=== PATIENT | female | born 1990 | race Caucasian/White ===

== ENCOUNTER 2024-08-14 09:31 | Emergency (ER) | payer OTHER, SELFPAY ==
--- NOTE | 2024-08-14 09:42 | ED_ITS ---
HPI - URI/Sore Throat General Chief Complaint: Upper Respiratory Infection Stated Complaint: Fever,Nausea,Headache Time Seen by Provider: 08/14/24 09:43 Source: patient, RN notes reviewed and old records reviewed Mode of arrival: ambulatory Limitations: no limitations History of Present Illness HPI Narrative: Patient presents with complaints of headache, fever, body aches, cough. She reports symptoms began 3 days ago. She reports at this time headache is her worst symptom. She states that she has been taking Tylenol, and this relieves all symptoms with the exception of her headache. She reports that headache become so bad that at times she has become nauseous and vomited. She denies any abdominal pain. She reports headache is worse with any sort of movement. Better with rest. She denies any injury or trauma. She voices no other concerns or complaints today. Related Data Allergies Allergy/AdvReac Type Severity Reaction Status Date / Time No Known Allergies Allergy Verified 08/14/24 09:43 Review of Systems Review of Systems: All systems reviewed & are unremarkable except as noted in HPI and below Constitutional: Constitutional: Reports as per HPI, Reports no additional constitutional complaints, Reports body ache(s), Reports chills, Reports fever(s), Reports headache(s) and Reports lethargy ENT: Reports system reviewed and no additional complaints, except as doc umented, Reports as per HPI, Reports nasal congestion and Reports nasal discharge Cardiovascular: Cardiovascular: Reports as per HPI and Reports no additional cardiovascular complaints Respiratory: Respiratory: Reports as per HPI, Reports no additional respiratory complaints and Reports cough Gastrointestinal: Gastrointestinal: Reports no additional gastrointestinal complaints PMFSH Comments At the time of my signature, I reviewed and agree with the nursing past medical, surgical, social, and family history. There is no relevant family history pertinent to the patient complaint. Exam Const: General: cooperative, no acute distress, alert and awake Orientation/consciousness: oriented to person, oriented to place and oriented to time HENMT: Head: normal to inspection, normocephalic and atraumatic Ears: TM's normal bilaterally Mouth: Yes moist mucous membranes Resp: Effort & Inspection: normal respiratory effort and able to speak in complete sentences Auscultation: clear to auscultation bilaterally, no crackles, no rales, no rhonchi and no wheezes Cardio: Palpation: normal PMI Rate: regular rate Rhythm: regular rhythm Heart sounds: S1 normal heart sound present and S2 normal heart sound present GI: GI Palp: Yes Soft to palpation, No Tenderness to palpation present (GI), No Guarding due to palpation present (GI) and No Rigid due to palpation Auscultation: abnormal bowel sounds Neuro: General: oriented to person, oriented to place and oriented to time Cranial nerves: Yes CN's II-XII intact bilaterally Psych: Appearance: grossly normal Thought process: Normal thought process present Insight: Good insight present (Psych) Judgement: Good judgement present (Psych) Course Course Level of Care: Express Care Visit Vital Signs Vital signs: Reviewed MDM - URI/Sore Throat MDM Narrative Medical decision making narrative: negative COVID, negative flu, negative strep. Culture pending. Patient is , was unable to give Toradol while in clinic today due to this fact. Discussed importance of staying well hydrated in light of breast feeding and headache. Patient agrees that if she was less nauseous she would be able to maintain better hydration status. Discharge home with Zofran. Emergency department precautions discussed. Discharge instructions reviewed with patient, as well as provided in writing per nursing staff. The instructions also include specific and strict return/GO TO THE ER as well as f/u information. All questions have been answered, and the patient deny any further questions with discharge and discharge plan. Some parts of this dictation were generated by voice recognition software and may contain typographical and/or grammatical inaccuracies. Differential Diagnosis Differential diagnosis: Likely upper respiratory infection, otitis media, sinusitis, viral infection, influenza and pharyngitis Medical Records Attestation: I reviewed the patient's medical records. Lab Data Attestation: I reviewed the patient's lab results. Discharge Plan Discharge Clinical Impression: Viral infection Patient Disposition: Home, Self-Care Condition: Stable Instructions: Antibiotic Form, Viral Syndrome (ED) Additional Instructions: stay well hydrated, use over the counter medication to help with headache and body aches. Take Zofran as prescribed. Follow with primary care provider. Emergency department for new or worse symptoms Patient Language: Colombian Prescriptions: New ondansetron 4 mg tablet,disintegrating 4 mg PO Q6H PRN (Reason: nausea and vomiting) Qty: 20 0RF Follow-up/Referrals: UNKNOWN,DOCTOR [Primary Care Provider] - Time of Disposition: 10:15
[2024-08-14 09:44] VITALS: BP 124/72; PULSE 88; RESP 18; TEMP 36.8; O2SAT 98
[2024-08-14 10:07] LABS: EDCOVIDSCREEN Negative (Negative); EDINFLUASCREEN Negative (Negative); EDINFLUBSCREEN Negative (Negative); EDSTREPNEGPOS1 Negative (Negative)
--- OUTSIDE RECORDS SUMMARY | 2024-08-14 10:15 | XMS_ITS | Clinical Summary ---
Author Organization [facility] Address [address] [place] [id number] Care Team Providers Care Band Cutting Machine Operator Name Role Phone Kathryn Melara NP Primary Care Provider Millicent Desai MD Unavailable [phone] Allergies No known active allergies Medications * This document contains information received from the source organization and may not represent a complete record from that organization. [id number] 29-1-400 mg combo pack Take by mouth Active Hospital, Clinic, or Other Facility Administered Medication Ordered Dose Route Frequency Start Date End Date Status copper (PARAGARD) 380 square mm IUD 1 eachIndications:Pre gnancy Contraception 1 each intrauterine Continuous (implanted device) 02/24/2024 4 Active Active Problems Problem Noted Date Diagnosed Date Encounter for routine follow-up 03/15 Assessment & Plan (05/13/2022 9:34 AM CDT): Discussed Usual Preventative Care for age today. We discussed ways to maintain a healthy lifestyle through regular fitness, diet, rest, resilience, obesity prevention/reduction and safety. Continue current medications and continue current healthy lifestyle patterns and return for routine annual checkups. Immunization status was reviewed and addressed based on CDC guidelines. Age appropriate counseling and testing was discussed using the Agency for Health Care Research and Quality (AHRQ.gov) recommendations as a basis. We will check lipids and additional screening labs as indicated. I recommended moderate aerobic exercise regularly at least 30 minutes most days of the week. A low-fat, low carbohydrate diet is recommended. Get calcium 1-1.2 gram daily with Vit D via diet or supplements Try to get 6-8 hours of sleep daily. Reduce exposure to stress. Accident Prevention was encouraged via Seatbelt/Helmet use. Patient was encouraged to contact this office should any new problems develop in the interim until next exam. Assessment & Plan (03/15/2020 9:46 AM CDT): Discussed Usual Preventative Care for age today. We discussed ways to maintain a healthy lifestyle through regular fitness, diet, rest, resilience, obesity prevention/reduction and safety. Continue current medications and continue current healthy lifestyle patterns and return for routine annual checkups. Immunization status was reviewed and addressed based on CDC guidelines. Age appropriate counseling and testing was discussed using the Agency for Health Care Research and Quality (AHRQ.gov) recommendations as a basis. We will check lipids and additional screening labs as indicated. I recommended moderate aerobic exercise regularly at least 30 minutes most days of the week. A low-fat, low carbohydrate diet is recommended. Get calcium 1-1.2 gram daily with Vit D via diet or supplements Try to get 6-8 hours of sleep daily. Reduce exposure to stress. Accident Prevention was encouraged via Seatbelt/Helmet use. Patient was encouraged to contact this office should any new problems develop in the interim until next exam. 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 No signs/symptoms of infection. # Heme: Hgb 11.6> EBL 250 mL. Hemodynamically stable. # CV/Pulm: Vital signs stable, within normal limits. # GI/: Tolerating PO. Voiding spontaneously. # Pain: Controlled with above regimen. # MOC: IUD at clinic visit # MOF: . Urine drug screen not indicated. Patient informed of results: N/A. # Post DVT prophylaxis: The patient has the following MAJOR risk factors none and the following MINOR risk factors none. SCDs ordered for VTE prophylaxis. # Disposition: Follow up task not sent. Desires discharge home today. Supervision of other normal , antepartum 05/28/2023 02/24/2024 Overview (01/13/2024): RN at [facility] -Vitamin D and B12 deficiency -IOL sched 01/18/2024 @ 0830, pt aware [x] Initial BMI: 22.92 [x] Labs: Labs: Lab Results Component Value Date ABORH A Positive 06/09/2023 IDCOOMB Negative 06/09/2023 [id number] Nonreactive 06/09/2023 LABRPR Nonreactive 06/09/2023 RUBELIGG Reactive 06/09/2023 HEPBSAG Nonreactive 06/09/2023 GBS neg 07/17/2021 [x] Genetic Screening: declines [x] Baby ASA: n/a [x] 1hr GCT at 24-28wks: 54 [x] Tdap (27-36wks): 10/21/2023 AH [x] Flu Shot: rcvd [] COVID vaccine: declines [] Rhogam (if Rh neg): n/a A+ [x] GBS at 36 wks:Negative [x] [x] control method: desires Paragard IUD @ her PP visit [x] 39 weeks discussion of IOL vs. Expectant management:desires spontaneous labor [x] Mode of delivery: anticipate [] For C/S bottle of CHG 4% and hand out provided @ 36wks Girl, , [facility] Teaching: [x] 1st visit [x] 28-30 week [x] 36 week care following vaginal delivery 08/15/2021 04/13/2023 Overview (08/16/2021): # ID: Afebrile. No signs/symptoms of infection. #COVID-19: Negative # Heme: EBL 150 mL. No symptoms acute blood loss anemia. # CV/Pulm: Vital signs stable, within normal limits. # GI/: Tolerating PO. Voiding spontaneously. # Pain: Controlled with above regimen. # Post DVT prophylaxis: The patient has the following MAJOR risk factors none and the following MINOR risk factors none. SCDs ordered for VTE prophylaxis. # MOC: Desires IUD at visit, declines bridge # MOF: # COVID Vaccination Status: Not previously received: I decline to share my reason for not getting the vaccine # Disposition: Follow up to be scheduled with primary OB. Patient desiring discharge today. Discussed that discharge depends on 's status and discussion with pediatrics team. Discussed that patient is meeting all milestones from a standpoint. Normal labor 08/14/2021 04/13/2023 Overview (08/14/2021): 1. Labor: Admit to L&D. Consents signed and placed in chart. Send CBC/T&S. Induction of labor with Pitocin. 2. FWB: Continuous monitoring. tracing category II, reassured by moderate variability 3. ID: HIV negative. GBS negative. Membrane Status: intact. 4. Indications for UDS: none. Verbal consent obtained for UDS: Not indicated 5. MOF: Plans to breastfeed. 6. MOC: Plans to use Kylena at 6 weeks for contraception. 7. Pain management: Desires epidural . 8. Post DVT prophylaxis: The patient has the following MAJOR risk factors none and the following MINOR risk factors none. SCDs will be ordered for VTE prophylaxis . 9. COVID Vaccine Status: did not recieve 10. COVID Test Status: Test sent on admission Supervision of other normal , antepartum 01/01/2021 04/13/2023 Overview (07/22/2021): -COVID + 09/2020 RN at [facility] [x] Labs: Labs: Lab Results Component Value Date ABORH A Positive 01/07/2021 IDCOOMB Negative 01/07/2021 [id number] Nonreactive 01/07/2021 LABRPR Nonreactive 01/07/2021 RUBELIGG Reactive 01/07/2021 HEPBSAG Nonreactive 01/07/2021 [x] Genetic Screening: Declined [x] Baby ASA: n/a [x] 1hr GCT at 24-28wks: 94 [x] Tdap (27-36wks): 11/2 SM [x] Flu Shot: 11/2SM [] Rhogam (if Rh neg): n/a A+ [x] GBS at 36 wks:Negative [x] [x] control method:likely 6wk Yomileyue [x] 39 weeks discussion of IOL vs. Expectant management: expectant mgmt [x] Mode of delivery: [] For C/S bottle of CHG 4% and hand out provided @ 36wks Girl, , Dr. Schwartz, Nguyễnena @ 6wks Teaching: [x] 1st visit [x] 28-30 week [x] 36 week Immunizations Name Administration Dates Next Due Influenza, Quadrivalent, Dang l Culture-based MDCK, Preservative Free, Antibiotic Free, Intramuscular 05/20/2021 Influenza, Trivalent, Cell C ulture-based MDCK, Preservative Free, Antibiotic Free, Intramuscular 04/25/2024 Influenza, Unspecified 05/07/2023,04/29/2022 Tdap 10/21/2023,05/20/2021,03/15/2020 Medical History Medical History Date Comments Eye exam, routine Needs to sewt up- Dr. Michelle Dental examination Q [address] roland [place] IUD contraception 2017 Dr. Diana wright in [place] H/O laryngeal spasm 2019 presented w waking at night and could not breath for 10-15 seconds -took 2.5 weeks of omeprazole and it helped Family History Medical History Relation Name Comments Lung cancer Father Ovarian cancer Mother's Sister Relation Name Status Comments Father Alive Mother Alive Mother's Sister Social History Tobacco Use Types Packs/Day Years Used Date Smoking Tobacco: Never Smokeless Tobacco: Never Tobacco Cessation:Counseling Given: Not Answered Alcohol Use Standard Drinks/Week Comments Yes 0 (1 standard drink = 0.6 oz pur e alcohol) Socially, 1-2 [facility] Utilities Answer Date Recorded In the past 12 months has th e [employer], gas, oil, or water [employer] threatened to shut off services in your home? No 01/16/2024 Humiliation, Afraid, Rape, and Kick questionnair e Answer Date Recorded Within the last year, have y ou been afraid of your partner or ex-partner? No 05/13/2022 Within the last year, have y ou been humiliated or emotionally abused in other ways by your partner or ex-partner? No Within the last year, have y ou been kicked, hit, slapped, or otherwise physically hurt by your partner or ex-partner? No 05/13/2022 Within the last year, have y ou been raped or forced to have any kind of sexual activity by your partner or ex-partner? No 05/13/2022 Social Connection and Isolat ion Panel [NHANES] Answer Date Recorded In a typical week, how many times do you talk on the phone with family, friends, or neighbors? More than three times a week 01/16/2024 How often do you get togethe r with friends or relatives? More than three times a week 01/16/2024 How often do you attend chur or pentecostal services? More than 4 times per year 01/16/2024 Do you belong to any clubs o r organizations such as hindu groups, unions, fraternal or athletic groups, or school groups? No 01/16/2024 How often do you attend meet ings of the clubs or organizations you belong to? Never 01/16/2024 Are you , , di vorced, , never , or living with a partner? 01/16/2024 AUDIT-C Answer Date Recorded Q1: How often do you have a drink containing alc ohol? Monthly or less 04/13/2023 Q2: How many drinks containi ng alcohol do you have on a typical day when you are drinking? 1 or 2 04/13/2023 Q3: How often do you have si x or more drinks on one occasion? Never 04/13/2023 Overall Financial Resource Strain (CARDIA) Answe r Date Recorded How hard is it for you to pa y for the very basics like food, housing, medical care, and heating? Not hard at all 01/16/2024 PHQ-2 Answer Date Recorded PHQ-2 Total Score (If total score is 3 or more points, staff should administer the PHQ-9) 0 05/13/2022 [facility] - Occupational Stress Questionnaire Answer Date Recorded Do you feel stress - tense, restless, nervous, or anxious, or unable to sleep at night because your mind is troubled all the time - these days? Only a little 05/13/2022 Exercise Vital Sign Answer Date Recorde d On average, how many days pe r week do you engage in moderate to strenuous exercise (like a brisk walk)? 3 days 05/13/2022 On average, how many minutes do you engage in exercise at this level? 30 min 05/13/2022 Hunger Vital Sign Answer Date Recorded Within the past 12 months, y ou worried that your food would run out before you got the money to buy more. Never true 01/16/20 24 Within the past 12 months, t he food you bought just didn't last and you didn't have money to get more. Never true 01/16/2024 PRAPARE - Transportation Answer Date Re corded In the past 12 months, has l ack of transportation kept you from medical appointments or from getting medications? No 12/19 In the past 12 months, has l ack of transportation kept you from meetings, work, or from getting things needed for daily living? No 01/16/2024 Housing Stability Vital Sign Answer Landen e Recorded In the last 12 months, was t here a time when you were not able to pay the mortgage or rent on time? No 05/13/2022 Number of Places Lived in the Last Year Not on f ile 05/13/2022 In the last 12 months, was t here a time when you did not have a steady place to sleep or slept in a senior care (including now)? No 05/13/2022 [place] Depression Scale Answer Date Recorded [place] Depression Scale Total 0 02/24/2024 The thought of harming myself has occurred to me . Never 02/24/2024 Housing Stability Vital Sign Answer Landen e Recorded In the last 12 months, was t here a time when you were not able to pay the mortgage or rent on time? No 01/16/2024 In the past 12 months, how m any times have you moved where you were living? 0 01/16/2024 At any time in the past 12 m [facility], were you homeless or living in a senior care (including now)? No 01/16/2024 Personal Safety Answer Date Recorded Have you ever been in or are you currently in a harmful physical or emotional relationship or is someone making you feel afraid or unsafe? Denies 01/15/2024 Education Answer Date Recorded What is the highest level of school you have completed or the highest degree you have received? 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 Not on file Not on file Not on file Obstetrics History Para Term AB IAB SAB Ectopic Multiple Livin g Live Births 2 2 2 0 2 2 Date Outcome GA Total Labor Labor/2nd/3rd Weight Sex Type Anes PTL Miranda A1 A5 Name Clin 2021 Term 40w 4d 25h 20m 24h 19m/0h 42m/0h 19m 2.78 kg (6 lb 2.1 oz) F Vag-Sp ont Epidur al N Livin g 8 9 SCHIN DEWOL F,GIR LRACH EL Demetris, Aliza Samson MD Complications:None Delivery Location:[facility] Main C ampus ([facility]LD) 2023 Term 40w 5d 0h 18m 0h 13m/0h 05m 3.37 kg (7 lb 6.9 oz) F Vagina l Epidur al N Livin g 9 9 ZAIDA OLIVERIO ON Schin dewol f Garry Morrison MD Complications:None Delivery Location:[facility] Main C amp[facility] ([facility]) Comments 2020-[facility]- Jeri Sabine - 40w 3d presented to [facility] with contractions. 2023- AC-- baby girl Zaida R labial hemostatic lac Last Filed Vital Signs Vital Sign Reading Time Taken Comments Blood Pressure 118/78 02/24/2024 2:32 PM CDT Pulse 80 01/17/2024 8:35 AM CDT Temperature 36.8 ??C (98.2 ??F) 01/17/2024 8:35 AM CD T Respiratory Rate 17 01/17/2024 8:35 AM CDT Oxygen Saturation 98% 01/17/2024 8:35 AM CDT Inhaled Oxygen Concentration - - Weight 63 kg (139 lb) 02/24/2024 2:32 PM CDT Height 160 cm (5' 3 ) 02/24/2024 2:32 PM CDT Body Mass Index 24.62 02/24/2024 2:32 PM CDT Plan of Treatment Health Maintenance Due Date Last Done Comments Hepatitis B Screening 2010 Cervical Cancer Screening 04/13/20242022, 04/13/2023, 09/25/2021, Additional history exists Regular Well Visit/Exam 18-64 04/13/2024 04/13/2023, 05/13/2022, 05/13/2022, Additional history exists Depression Screening 02/23/2025 02/24/2024, 05/13/2022, 05/13/2022, Additional history exists DTaP/Tdap/Td Vaccine (4 - Td or Tdap) 10/20/2033 10/21/2023, 05/20/2021, 03/15/2020 Hepatitis C Screening Completed 06/09/2023 Influenza Vaccine Completed 04/25/2024, , 04/29/2022, Additional history exists HPV Vaccines Aged Out No longer eligi ble based on patient's age to complete this topic Pneumococcal vaccine <65 Aged Out No longer eligible based on patient's age to complete this topic Varicella Vaccines Discontinued Procedures Procedure Name Priority Date/Time Associated Diagnosis Comments HEPATITIS C ANTIBODY Routine 06/09/2023 1:56 PM INTEGRATION SPECIALIST Supervision of other normal , antepartum HIGH RISK HPV DNA DETECTION WITH GENOTYPING Routine 04/13/2023 5:00 PM CDT Well woman exam from Last 3 Months or Most Recently Relevant to Health Maintenance Results * Hepatitis C antibody Blood (06/09/2023 1:56 PM INTEGRATION SPECIALIST) Hep C Ab Nonreactive Nonreactive SAMMY MUHAMMAD Comment:Antibodies to HCV no t detected. Does NOT exclude the possibility of recent exposure to HCV. Current interpretive data was last revised on 22 Blood 06/09/2023 1:56 PM INTEGRATION SPECIALIST 06/09/2023 2:26 PM INTEGRATION SPECIALIST us Leslie Cordero MD LAB MICROBIOLOGY - GEN ERAL ORDERABLES Final Result SAMMY SABINA [facility] Department [place] [address] * High Risk HPV DNA Detection with Genotyping (Molecular component) (04/13/2023 5:00 PM CDT) HPV HR 16 Not Detected Not Detected SAMMY MUHAMMAD Comment:Collection date/time has been modified to: 17:00:00. Previous collection date/time: 03:02:00. HPV HR 18 Not Detected Not Detected SAMMY MUHAMMAD Comment:Collection date/time has been modified to: 17:00:00. Previous collection date/time: 03:02:00. HPV HR Non 16/18 Not Detected Not Detected SAMMY MUHAMMAD Comment: Collection date/time has been modified to: 17:00:00. ??Previous collection date/time: 03:02:00. Interpretive Data Nucleic acid amplification for detection of high-risk Human Papilloma virus (HPV) is performed by the Taylor Yoan 6800 HPV test. ??This assay specifically detects HPV-16 and HPV-18 genotypes. ??The following HPV genotypes are detected as high-risk HPV: ?? HPV-31, 33, 35, ,39, 45, 51, 52, 56, 58, 59, 66, and 68. ??This assay has been approved by the [place] Food and Drug Administration for detection of HPV in cervical specimens collected by a physician using an endocervical brush/spatula or cervical broom and placed in the ThinPrep Pap Test PreservCyt collection containers. ??The performance characteristics of this test have been verified by the [facility] Molecular Infectious Disease laboratory. Correlate with separately reported cytology results, as applicable. Interpretive data last revised 23 Endocervical 04/13/2023 5:00 PM CDT 04/14/2023 6:47 AM CDT Narrative SAMMY BUENO - 04/16/2023 11:04 AM CDT Clinical history and diagnosis->none Testing type->Screening Last menstrual period (date if known)->04/05/2023 Contraceptive use->IUD zay Jody Eldridge NP LAB BODY FLU IDS AND STOOLS ORDERABLES Edited Result - Final SAMMY [facility] Department [place] [address] from Last 3 Months or Most Recently Relevant to Health Maintenance Insurance [facility] H[facility]/PPO Address: [place] [id number] [employer] [facility] H[employer]/PPO Address: [place] [id number] [place] [id number] [employer] Advance Directives For more information, please contact: [phone] * Full Code (Latest Code Status on File) Date Activated Date Inactivated Comments 01/15/2024 4:57 PM 01/17/2024 2:53 PM * Full Code Date Activated Date Inactivated Comments 01/15/2024 9:33 AM 01/15/2024 4:57 PM Full CPR in case of cardiopulmonary arrest * Full Code Date Activated Date Inactivated Comments 08/15/2021 4:59 AM 08/16/2021 7:20 PM * Full Code Date Activated Date Inactivated Comments 08/14/2021 12:44 PM 08/15/2021 4:59 AM Full CPR in case of cardiopulmonary arrest Care Teams Band Cutting Machine Operator Relationship Specialty Start Date End Date Kathryn Melara NP [address] [place] [address] PCP - General Internal Medicine 09/27/18 Millicent Desai MD [address] [place] [address] Consulting Physician Otolaryngology 03/15/20 [facility] Dentist 05/13/22
--- OUTSIDE RECORDS SUMMARY | 2024-08-14 10:15 | XMS_ITS | Referral Summary ---
Author Organization [facility] Address [address] [place] [id number] Care Team Providers Care Garage Door Service Technician Name Role Phone Kathryn Melara NP Primary Care Provider Millicent Desai MD Unavailable [phone] Allergies No known active allergies Medications * This document contains information received from the source organization and may not represent a complete record from that organization. [id number] 29-1-400 mg combo pack Take by [...] antepartum 05/28/2023 02/24/2024 Overview (01/13/2024): RN at [facility] -Vitamin D and B12 deficiency -IOL sched 01/18/2024 @ 0830, pt aware [x] Initial BMI: 22.92 [x] Labs: Labs: Lab Results Component Value Date ABORH A Positive 06/09/2023 IDCOOMB Negative 06/09/2023 [id number] Nonreactive 06/09/2023 LABRPR Nonreactive 06/09/2023 RUBELIGG Reactive [...] hand out provided @ 36wks Girl, , [facility] Teaching: [x] 1st visit [x] 28-30 week [...] Overview (07/22/2021): -COVID + 09/2020 RN at [facility] [x] Labs: Labs: Lab Results Component Value Date ABORH A Positive 01/07/2021 IDCOOMB Negative 01/07/2021 [id number] Nonreactive 01/07/2021 LABRPR Nonreactive 01/07/2021 RUBELIGG Reactive 01/07/2021 HEPBSAG Nonreactive 01/07/2021 [x] Genetic Screening: Declined [x] Baby ASA: n/a [x] 1hr GCT at 24-28wks: 94 [x] Tdap (27-36wks): 11/2 SM [x] Flu Shot: 11/2SM [] Rhogam (if Rh neg): n/a A+ [x] GBS at 36 wks:Negative [x] [x] control method:likely 6wk Maxi [x] 39 weeks discussion of IOL vs. [...] Intramuscular 04/25/2024 Influenza, Unspecified 05/07/2023,04/29/2022 Tdap 10/21/2023,05/20/2021,03/15/2020 Social History Tobacco Use Types Packs/Day Years Used Date Smoking Tobacco: Never Smokeless Tobacco: Never Tobacco Cessation:Counseling Given: Not Answered Alcohol Use Standard Drinks/Week Comments Yes 0 (1 standard drink = 0.6 oz pur e alcohol) Socially, 1-2 [facility] Utilities Answer Date Recorded In the past 12 months has [facility] datatracker, gas, oil, or water [employer] threatened to shut off services in your [...] How often do you attend chur or confucianism services? More than 4 times per year 01/16/2024 Do you belong to any clubs o r organizations such as sabianism groups, unions, fraternal or athletic groups, or [...] staff should administer the PHQ-9) 0 05/13/2022 [facility] - Occupational [...] place to sleep or slept in a intermediate (including now)? No 05/13/2022 [place] Depression Scale Answer Date Recorded [place] Depression Scale Total 0 02/24/2024 The thought [...] any time in the past [address] [facility], were you homeless or living in a intermediate (including now)? 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 Not on file Not on file Not on file Last Filed Vital Signs Vital Sign Reading [...] 02/24/2024 2:32 PM CDT Plan of Treatment Not on file Procedures Procedure Name Priority Date/Time Associated Diagnosis Comments HEPATITIS C ANTIBODY Routine 06/09/2023 1:56 PM THEORETICAL PHYSICS TEACHER Supervision of other normal , antepartum HIGH RISK HPV DNA DETECTION WITH GENOTYPING Routine 04/13/2023 5:00 PM CDT Well woman exam from Last 3 Months or Most Recently Relevant to Health Maintenance Results * Hepatitis C antibody Blood (06/09/2023 1:56 PM THEORETICAL PHYSICS TEACHER) Pathologist [facility] Hep C Ab Nonreactive Nonreactive SAMMY BUENO Comment:Antibodies to HCV no t detected. Does NOT exclude the possibility of recent exposure to HCV. Current interpretive data was last revised on 22 Blood 06/09/2023 1:56 PM THEORETICAL PHYSICS TEACHER 06/09/2023 2:26 PM THEORETICAL PHYSICS TEACHER us Leslie Cordero MD LAB MICROBIOLOGY - GEN ERAL ORDERABLES Final Result SAMMY MUHAMMAD [facility] Department [place] [address] * High Risk HPV DNA Detection with Genotyping (Molecular component) (04/13/2023 5:00 PM CDT) Pathologist [facility] HPV HR 16 Not Detected Not Detected [facility] Comment:Collection date/time has been modified to: 17:00:00. Previous collection date/time: 03:02:00. HPV HR 18 Not Detected Not Detected [facility] Comment:Collection date/time has been modified to: 17:00:00. Previous collection date/time: 03:02:00. HPV HR Non 16/18 Not Detected Not Detected [facility] Comment: Collection date/time has been modified to: [...] this test have been verified by the [facility] Molecular Infectious Disease laboratory. Correlate with separately reported cytology results, as applicable. Interpretive data last revised 23 Endocervical 04/13/2023 5:00 PM CDT 04/14/2023 6:47 AM CDT Narrative [facility] - 04/16/2023 11:04 AM CDT Clinical history and diagnosis->none Testing type->Screening Last menstrual period (date if known)->04/05/2023 Contraceptive use->IUD paragard Jody Eldridge NP LAB BODY FLU IDS AND STOOLS ORDERABLES Edited Result - Final [facility] Department [place] [address] from Last 3 Months or Most Recently Relevant to Health Maintenance Insurance [employer] [place] [id number] , [place] [address] JESSICANA ALLEGIANCE Advance Directives For more information, please contact: [phone] * Full Code (Latest Code Status on [...] in case of cardiopulmonary arrest Care Teams Garage Door Service Technician Relationship Specialty Start Date End Date Kathryn Melara NP [address] [place] [address] PCP - General Internal Medicine 09/27/18 Millicent Desai MD [address] [place] [address] Consulting Physician Otolaryngology 03/15/20 [facility] Dentist 05/13/22
== END 2024-08-14 10:22 | disposition home or self-care (01) ==
PROVIDERS: Emergency Provider Nurse Practitioner Family
DX: B34.9 Viral infection, unspecified (principal); Z20.822 Contact with and (suspected) exposure to COVID-19
CPT/HCPCS: 87081; 87426; 87804; 87880; 99203; G0463